=== PATIENT | male | born 1955 | race Caucasian/White ===

== ENCOUNTER 2017-01-23 06:50 | Inpatient (IN) | payer MEDICARE ==
[~2017-01-23 06:50] MED LIST: ACETAMINOPHEN500 M1 PO; ALBUTEROL2.5 MG/3 M INH; ATIVAN0.5 MG PO; ATROVENT 0.02%2.5 ML UPD; BAYER CHEWABLE81 MG PO; BUMEX 1 MG TAB1 MG PO; CALCIUM 600 +1 EAC3 PO; CARDIZEM CD240 MG PO; CARDIZEM LA300 MG PO; CARDURA8 MG PO; CATAPRES0.1 MG PO; COREG12.5 MG PO; COREG25 MG PO; COZAAR100 MG PO; DEPAKOTE SPRIN125 MG PO; FOLBEE PLUS TAB1 TAB PO; HUMALOG 30100 UNITS/; HUMULIN R100 U/ML SC; HYDRALAZINE HCL50 MG PO; HYDROCHLOROTHIA25 MG PO; HYDROCODON-ACE1 EAC7 PO; HYDROCODONE-APA1 TAB PO; IBUPROFEN400 MG PO; ISOSORBIDE MONO60 M1 PO; LANTUS INSULIN10 ML SC; LANTUS SOL100 UNIT/1 SC; LIPITOR10 MG PO; LIPITOR20 MG PO; MAG-OX 400 MG400 MG PO; NEURONTIN 400400 MG PO; NEURONTIN600 MG PO; NORVASC10 MG PO; PEPCID20 MG PO; PRINIVIL20 MG PO; PROTONIX20 MG PO; SEROQUEL25 MG PO; VENTOLIN HFA18 GM INH; VITAMIN B-1100 M1 PO; XOPENEX 0.0.63 MG/3 UPD; ZESTORETIC 20/21 TAB PO; ZOLOFT50 MG PO
[2017-01-23 07:31] LABS: BASOPHILS 0.4 % (0-2); EOSINOPHILS 1.3 % (0-7); HEMOGLOBIN 10.6 g/dL (13.5-17.5); IMMATURE GRANULOCYTES 0.7 % (0-5); LYMPHOCYTES 17.2 % (15-50); MCH 29.9 pg (26.0-34.0); MCHC 32.1 g/dL (31.0-37.0); MCV 93.2 fL (80.0-100.0); MEAN PLATELET VOLUME 9.8 fL (7.4-10.4); MONOCYTES 8.7 % (2-11); NEUTROPHILS 71.7 % (40-80); PLATELET COUNT 308 10x3/uL (130-400); RBC 3.54 10x6/uL (4.20-6.10); RDW 15.6 % (11.5-14.5); WBC 13.6 10x3/uL (4.8-10.8)
[2017-01-23 07:58] LABS: ALBUMIN 2.8 g/dL (3.4-5.0); ANION GAP 16.8 mmol/L (8-16); BILIRUBIN - TOTAL 0.2 mg/dL (0.2-1.3); CALCIUM 8.8 mg/dL (8.5-10.1); CARBON DIOXIDE 21.5 mmol/L (21.0-32.0); CREATININE - SERUM 3.6 mg/dL (0.6-1.3); POTASSIUM - SERUM 5.3 mmol/L (3.5-5.1); PROTEIN - SERUM 7.3 g/dL (6.4-8.2)
[2017-01-23 08:00] LABS: APPEARANCE CLEAR (CLEAR); BILIRUBIN NEGATIVE (NEGATIVE); COLOR YELLOW (YELLOW); GLUCOSE 100 mg/dL (NEGATIVE); KETONE NEGATIVE (NEGATIVE); NITRITE NEGATIVE (NEGATIVE); PROTEIN 3+ mg/dL (NEGATIVE); RED CELLS - URINE OCC /hpf (0-5); SPECIFIC GRAVITY 1.015 (1.005-1.020); UROBILINOGEN NORMAL (NORMAL); WHITE CELLS - URINE OCC /hpf (0-5)
[2017-01-23 08:01] LABS: BACTERIA FEW /hpf (NONE SEEN); EPITHELIAL CELLS 0-5 /hpf (0-5); MUCUS <1+ /lpf (NONE SEEN)
[2017-01-23 08:22] LABS: CREATINE KINASE 106 UL (21-232); PRO BNP 1394 pg/mL (0-125); TROPONIN-I < 0.017 ng/mL (0.000-0.060)
--- NOTE | 2017-01-23 13:10 | NUR ---
ARRIVE TO ROOM VIA STRETCHER FROM ER. CONFUSED. CRYING OUT. ORIENTED TO PERSON. THREE SIDERAILS UP. TRYING TO CRAWL OUT OF BED. ANITRA ALARM AND BED ALARM ON. STOOL VISIBLE AT ANUS. ATTEMPT TO MANUALLY PULL STOOL OUT. STOOL HARD AND PATIENT YELLS OUT WHEN TOUCHING ANUS. TALK WITH SUMMER LOOMIS TO OBTAIN ANITRA BED IF NEEDED. CONTINUE ADMISSION PROCESS AND SAFETY PRECAUTIONS.
[2017-01-23 13:50] LABS: COMPLEMENT C4 29.9 mg/dL (17.4-52.2)
[2017-01-23 13:51] LABS: CHOL - HDL RATIO 3.9 ratio (2.3-4.9); LDL-HDL RATIO 2.1 ratio (1.5-3.5); MAGNESIUM - SERUM 1.9 mg/dL (1.8-2.4)
[2017-01-23 15:39] LABS: HEMOGLOBIN A1C 6.3 % (4.8-6.0)
[2017-01-23 16:17] VITALS: BP 144/94
--- NOTE | 2017-01-23 17:40 | NUR ---
NOTIFY BARRY IN IMAGING TO HAVE RESULTS OF MRI CALLED TO PER 'S REQUEST.
[2017-01-23 17:44] VITALS: BP 144/94; BMI 22.0
--- NOTE | 2017-01-23 19:30 | NUR ---
PT IN BED MAKING A LOUD MOANING NOISE. PT DOES NOT ANSWER ANY OF MY QUESTIONS. UNABLE TO ASSESS ANY ORIENTATION STATUS ALSO UNABLE TO DETERMINE IF PT HAS ANY NEEDS AT THIS TIME. WILL CONTINUE TO MONITOR
[2017-01-23 21:18] VITALS: BP 147/93
--- NOTE | 2017-01-24 02:18 | NUR ---
PT RESTING COMFORTABLY, OCCASIONALL YELLS OUT, CONFUSED. NO NEEDS AT THIS TIME. CONTINUE TO MONITOR CLOSELY. BED LOW, CALL LIGHT IN REACH, SIDE RAILS X 2, HOB 30 DEGREES. ANITRA MAT ON AND UNDER PATIENT.
[2017-01-24 06:51] LABS: BASOPHILS 0.4 % (0-2); EOSINOPHILS 0.7 % (0-7); HEMATOCRIT 32.7 % (42.0-54.0); HEMOGLOBIN 10.3 g/dL (13.5-17.5); IMMATURE GRANULOCYTES 0.8 % (0-5); LYMPHOCYTES 22.1 % (15-50); MCH 29.7 pg (26.0-34.0); MCHC 31.5 g/dL (31.0-37.0); MCV 94.2 fL (80.0-100.0); MEAN PLATELET VOLUME 9.9 fL (7.4-10.4); MONOCYTES 11.1 % (2-11); NEUTROPHILS 64.9 % (40-80); PLATELET COUNT 286 10x3/uL (130-400); RBC 3.47 10x6/uL (4.20-6.10)
[2017-01-24 06:55] LABS: WBC 10.1 10x3/uL (4.8-10.8)
[2017-01-24 07:28] LABS: ANION GAP 15.6 mmol/L (8-16); CALCIUM 8.6 mg/dL (8.5-10.1); CARBON DIOXIDE 22.4 mmol/L (21.0-32.0); CREATININE - SERUM 3.3 mg/dL (0.6-1.3)
--- NOTE | 2017-01-24 07:35 | NUR ---
AM ROUNDS - PT ID IN BED AND ASLEEP AT THIS TIME. GARNER DRAINING. PT HAS A YELLOW BAND ON. IV TO LEFT HAND, D5@100CC/HR. BED AT LOWEST POSITION. CALL EAGLE IN USE/REACH. SIDE RAILS UP X2. PHU CONTINUE TO MONITOR
--- NOTE | 2017-01-24 07:43 | NUR ---
PT HAS NO DIET ORDER. FAMILY STATES PT IS USUALLY ON A [facility] SOFT DIET. PAGED DR. SAVAGE. WAITING WIRE INSERTER BACK.
[2017-01-24 08:15] VITALS: BP 140/105
[2017-01-24 12:04] VITALS: BP 170/90
[2017-01-24 13:56] VITALS: BMI 22.0
[2017-01-24 16:54] VITALS: BP 181/94
[2017-01-24 17:16] LABS: INR 1.08 (0.85-1.17); PROTIME 13.9 SECONDS (11.6-15.0)
[2017-01-24 19:00] VITALS: BP 162/96
--- NOTE | 2017-01-24 19:14 | NUR ---
U.S. TECH AT BED SIDE, PT IN BED, AWAKE AND ALERT. LEFT WRIST IV WITH D5W 1/2 NS INFUSING AT 50 CC/HR. GARNER DRAINING TO GRAVITY.
[2017-01-25] VITALS: BP 187/104
--- NOTE | 2017-01-25 00:55 | NUR ---
PACKING MACHINE FEEDER AT BEDSIDE TO OBTAIN VITALS, CALL LIGHT IN REACH. WILL CONTINUE WITH PLAN OF CARE.
[2017-01-25 04:00] VITALS: BP 181/101
[2017-01-25 05:05] LABS: BASOPHILS 0.2 % (0-2); EOSINOPHILS 0.1 % (0-7); HEMATOCRIT 26.4 % (42.0-54.0); HEMOGLOBIN 8.5 g/dL (13.5-17.5); IMMATURE GRANULOCYTES 0.4 % (0-5); LYMPHOCYTES 12.9 % (15-50); MCH 29.9 pg (26.0-34.0); MCHC 32.2 g/dL (31.0-37.0); MEAN PLATELET VOLUME 9.6 fL (7.4-10.4); MONOCYTES 11.3 % (2-11); NEUTROPHILS 75.1 % (40-80); PLATELET COUNT 252 10x3/uL (130-400); RBC 2.84 10x6/uL (4.20-6.10); RDW 15.7 % (11.5-14.5)
--- NOTE | 2017-01-25 05:08 | NUR ---
RESTING WITH EYES CLOSED, RESPERATIONS EVEN, NO S/S DISTRESS NOTED.
[2017-01-25 05:32] LABS: ANION GAP 12.4 mmol/L (8-16); CALCIUM 8.3 mg/dL (8.5-10.1); CREATININE - SERUM 3.3 mg/dL (0.6-1.3); POTASSIUM - SERUM 3.4 mmol/L (3.5-5.1)
[2017-01-25 05:37] LABS: WBC 18.4 10x3/uL (4.8-10.8)
--- NOTE | 2017-01-25 07:42 | NUR ---
AM ROUNDING- RECIEVED REPORT FROM SUPPLY CHAIN SPECIALIST NURSE CHRISTINE. PT IS CURRENTLY LAYING IN BED ON BACK WITH EYES CLOSED RESTING. ON ROOM AIR. ON MONITOR SHOWING SR, HR 95. IV SEEN TO LEFT HAND WITH D5W WITH 1/2 NS RUNNING AT 50CC. GARNER CATHETER SEEN WITH YELLOW URINE. SCDS ARE ON. NO NEED AT THIS CURRENT TIME. BED IS IN LOW POSIITON AND SIDE RAILS ARE UP X2. WILL CONTINUE TO MONITOR AND CONTINUE WITH PLAN OF CARE.
[2017-01-25 08:00] VITALS: BP 173/90
[2017-01-25 09:34] LABS: AMYLASE - SERUM 24 U/L (25-115); LIPASE 137 U/L (73-393)
--- NOTE | 2017-01-25 11:00 | NUR ---
UPON DOING AM MEDICATIONS AND DAILY SHIFT ASSESSMENT, PT WAS ABLE TO TELL ME HIS NAME, , WHAT YEAR IT IS, AND THAT HE IS IN HOSPITAL. PT ABLE TO TAKE PO MEDICATIONS ORDERED. WILL CONTINUE TO MONITOR.
[2017-01-25 12:00] VITALS: BP 105/58
[2017-01-25 14:24] LABS: ANA REFLEX - DBL STRANDED DNA 6 IU/mL (0-9)
[2017-01-25 14:50] LABS: APPEARANCE SLT CLOUDY (CLEAR); BILIRUBIN NEGATIVE (NEGATIVE); COLOR YELLOW (YELLOW); GLUCOSE 250 mg/dL (NEGATIVE); KETONE NEGATIVE (NEGATIVE); NITRITE NEGATIVE (NEGATIVE); PROTEIN 3+ mg/dL (NEGATIVE); SPECIFIC GRAVITY 1.015 (1.005-1.020); UROBILINOGEN NORMAL (NORMAL)
[2017-01-25 14:52] LABS: BACTERIA MODERATE /hpf (NONE SEEN); EPITHELIAL CELLS 0-5 /hpf (0-5); GRANULAR CAST 0-5 /lpf (NONE SEEN); MUCUS <1+ /lpf (NONE SEEN)
[2017-01-25 16:00] VITALS: BP 143/63
--- NOTE | 2017-01-25 18:31 | NUR ---
PT IS CURRENTLY SITTING UP IN BED SLOUCHED TO RIGHT SIDE WITH EYES CLOSED RESTING. WOKE PT UP SO PT COULD GET MORE COMFORTABLE. PT IS VERY LETHARGIC. NO NEED AT THIS CURRENT TIME. BED IS IN LOW POSITION, SIDE RAILS ARE UP X2, AND CALL LIGHT IS IN REACH.
--- NOTE | 2017-01-25 19:38 | NUR ---
PT RESTING IN BED. WATCHING TV. MAURA HAS YELLOW URINE IN BAG. PT LEANING TO LEFT. STATES HE IS COMFORTABLE IN THAT POSITION. PT HAS PRN STOOL SOFTNERS. ASKED PT WHEN THE LAST TIME HE HAD A BM. HE STATES IT HAS BEEN A WHILE. WILL GIVE PT PRN COLACE AND MIRALAX. PT ALSO STATES HE WANTS HIS ATIVAN. PT DENIES ANY OTHER NEEDS. NO S/S OF DISTRESS. WILL CPOC
[2017-01-25 20:00] VITALS: BP 160/85
--- NOTE | 2017-01-25 22:36 | NUR ---
REPOSITIONED PT. PT WATCHING TV. DENIES ANY NEEDS. NO S/S OF DISTRESS. WILL CPOC
[2017-01-26] VITALS (7 sets, daily range): BP systolic 119–182; BP diastolic 74–94
[2017-01-26 05:19] LABS: BASOPHILS 0.3 % (0-2); HEMATOCRIT 27.1 % (42.0-54.0); IMMATURE GRANULOCYTES 0.6 % (0-5); LYMPHOCYTES 21.3 % (15-50); MCH 30.4 pg (26.0-34.0); MCHC 33.2 g/dL (31.0-37.0); MCV 91.6 fL (80.0-100.0); MEAN PLATELET VOLUME 9.5 fL (7.4-10.4); MONOCYTES 10.2 % (2-11); NEUTROPHILS 66.6 % (40-80); PLATELET COUNT 224 10x3/uL (130-400); RBC 2.96 10x6/uL (4.20-6.10); RDW 15.9 % (11.5-14.5); WBC 15.7 10x3/uL (4.8-10.8)
[2017-01-26 05:30] LABS: ANION GAP 11.6 mmol/L (8-16); CALCIUM 8.4 mg/dL (8.5-10.1); CARBON DIOXIDE 23.4 mmol/L (21.0-32.0); CREATININE - SERUM 3.3 mg/dL (0.6-1.3); MAGNESIUM - SERUM 1.8 mg/dL (1.8-2.4); PHOSPHOROUS 3.1 mg/dL (2.5-4.9)
[2017-01-26 05:31] LABS: INR 1.26 (0.85-1.17); PROTIME 15.7 SECONDS (11.6-15.0)
--- NOTE | 2017-01-26 07:56 | NUR ---
AM ROUNDING- RECIEVED REPORT FROM DIRECTOR OF CONSUMER AFFAIRS NURSE MYNOR. PT IS CURRENTLY SITTING UP IN BED WITH EYES OPEN RESTING. PT IS ALERT TO PERSON, TIME, AND PLACE. ON 02 AT 2L VIA NC (RESP CAME TO ME DURING REPORT AND STATES THAT PTS 02 SAT IS IN 80'S AND AFTER PLACING 02 AT 2L VIA NC ON PTS O2 SAT IS NOW 94%). ON MONITOR SHOWING SR, HR 78. IV SEEN TO LEFT HAND WITH D5W 1/2 NS WITH 30KCL+ RUNNING AT 50CC. GARNER CATHETER SEEN WITH YELLOW URINE. NO NEED AT THIS CURRENT TIME. BED ALARM IS ON. BED IS IN LOW POSITION, SIDE RAILS ARE UP X2, CALL LIGHT IS IN REACH, AND NON-SKID SOCKS ARE ON. WILL CONTINUE TO MONITOR AND CONTINUE WITH PLAN OF CARE.
[2017-01-26 09:18] LABS: SPE - A/G RATIO 0.7 (0.7-1.7); SPE - ALBUMIN 2.9 g/dL (2.9-4.4); SPE - ALPHA-1 GLOBULIN 0.2 g/dL (0.0-0.4); SPE - ALPHA-2 GLOBULIN 1.1 g/dL (0.4-1.0); SPE - GAMMA GLOBULIN 1.6 g/dL (0.4-1.8); SPE - M-SPIKE Not Observed g/dL (Not Observed); SPE - TOTAL PROTEIN 6.8 g/dL (6.0-8.5)
[2017-01-26 09:58] LABS: AMYLASE - SERUM 29 U/L (25-115); LIPASE 164 U/L (73-393)
--- NOTE | 2017-01-26 10:42 | NUR ---
0930- UPON DOING AM MEDICATIONS NOTICED FROM HALLWAY THAT PT HAD BLOOD ON PILLOW CASE. CAME TO CHECK ON PT AND IV CATHETER TO LEFT HAND WAS HANGING OUT. 1040- THIS NURSE ATTEMPTED TO SITE PT X2 STICK WITH IV CATHETER THAT WAS NOT SUCCESSFUL. MALLORY BIGGS, VASCULAR ACCESS NURSE IN ROOM NOW TRYING TO SITE PT WITH IV CATHETER. WILL RESTART IV MEDICATIONS AND GIVE IV ANTIBIOTICS ONCE PT HAS IV.
--- NOTE | 2017-01-26 11:45 | NUR ---
MALLORY BIGGS, VASCULAR ACCESS NURSE SITED PT WITH 22G IV CATHETER TO LEFT HAND. IV FLUIDS RESTARTED ORDERED.
--- NOTE | 2017-01-26 12:28 | NUR ---
DR. WORTHINGTON ON UNIT. DR. WORTHINGTON STATES TO DO BLADDER TRAINING WITH PT AND D/C FOELY WHEN APPROPIATE FOR PT.
--- NOTE | 2017-01-26 13:21 | NUR ---
Nutrition Follow Up: Pt was asleep at the time of RD visit. No family present. Interview deferred. Pt is eating 50% meal avg on a renal ADA mech soft diet. Wt gain noted. No BM since admit. Labs reviewed. Meds noted including Megace. Rec continue current diet. Rec continue appetite stimulant. RD following.
[2017-01-26 14:24] LABS: ANA REFLEX - ANTICHROMATIN ABS <0.2 AI (0.0-0.9); ANA REFLEX - CENTROMERE B ABS <0.2 AI (0.0-0.9); ANA REFLEX - DIRECT Positive (Negative); ANA REFLEX - JO-1 AB <0.2 AI (0.0-0.9); ANA REFLEX - RNP ANTIBODIES 1.2 AI (0.0-0.9); ANA REFLEX - SCL-70 1.1 AI (0.0-0.9); ANA REFLEX - SJOGRENS AB SSA 0.2 AI (0.0-0.9); ANA REFLEX - SJOGRENS AB SSB <0.2 AI (0.0-0.9); ANA REFLEX - SMITH AB <0.2 AI (0.0-0.9)
[2017-01-26 15:34] LABS: PRO/CRE RATIO URINE 15.8 mg/g; PROTEIN - URINE 614.4 mg/dL (0.0-11.9)
--- NOTE | 2017-01-26 15:55 | NUR ---
STARTED PTS BLADDER TRAINING STATED BY DR. WORTHINGTON. CLAMED PTS GARNER CATHETER TUBING. INSTRUCTED PT TO LET ME KNOW WHEN HAVING URGE TO URINATE SO I CAN UNCLAMP GARNER. PT AGREES.
--- NOTE | 2017-01-26 16:20 | NUR ---
PT STILL HAS NOT HAD BM. PT GIVEN COLACE PRN ORDERED AND MIRLAX PRN ORDERED.
[2017-01-26 17:12] LABS: SPE - A/G RATIO 0.8 (0.7-1.7); SPE - ALBUMIN 2.3 g/dL (2.9-4.4); SPE - ALPHA-1 GLOBULIN 0.2 g/dL (0.0-0.4); SPE - ALPHA-2 GLOBULIN 0.8 g/dL (0.4-1.0); SPE - BETA GLOBULIN 0.8 g/dL (0.7-1.3); SPE - GAMMA GLOBULIN 1.1 g/dL (0.4-1.8); SPE - M-SPIKE Not Observed g/dL (Not Observed); SPE - TOTAL PROTEIN 5.2 g/dL (6.0-8.5)
--- NOTE | 2017-01-26 18:27 | NUR ---
PT IS LAYING IN BED ON BACK WITH EYES OPEN RESTING. GARNER CATHETER HAS BEEN CLAMPED FOR BLADDER TRAINING. GARNER TUBING UNCLAMPED. WILL PASS THIS ALONG IN REPORT. WILL CONTINUE TO MONITOR.
--- NOTE | 2017-01-26 21:53 | NUR ---
HS MEDS GIVEN WITH FRESH ICE WATER. BS 249. COVERED PER S/S. PT INCONTINENT OF BOWEL, DYNO TECHNICIAN AT BED SIDE. BATH AND LINEN CHANGE COMPLETE. BED LOW, CL IN REACH, WILL CONT TO MONITOR.
[2017-01-27] VITALS: BP 160/70
[2017-01-27 04:00] VITALS: BP 106/55
[2017-01-27 05:21] LABS: BASOPHILS 0.2 % (0-2); EOSINOPHILS 1.1 % (0-7); HEMATOCRIT 27.7 % (42.0-54.0); IMMATURE GRANULOCYTES 1.3 % (0-5); LYMPHOCYTES 14.9 % (15-50); MCH 29.8 pg (26.0-34.0); MCHC 32.5 g/dL (31.0-37.0); MCV 91.7 fL (80.0-100.0); MONOCYTES 10.2 % (2-11); NEUTROPHILS 72.3 % (40-80); PLATELET COUNT 250 10x3/uL (130-400); RBC 3.02 10x6/uL (4.20-6.10); RDW 15.9 % (11.5-14.5); WBC 16.2 10x3/uL (4.8-10.8)
[2017-01-27 05:36] LABS: INR 1.92 (0.85-1.17)
[2017-01-27 05:40] LABS: ANION GAP 13.7 mmol/L (8-16); CALCIUM 8.7 mg/dL (8.5-10.1); CARBON DIOXIDE 22.7 mmol/L (21.0-32.0); CREATININE - SERUM 3.5 mg/dL (0.6-1.3); PHOSPHOROUS 2.9 mg/dL (2.5-4.9); POTASSIUM - SERUM 4.4 mmol/L (3.5-5.1)
[2017-01-27 05:43] LABS: ERYTHROCYTE SEDIMENTATION RATE 42 mm/hr (0-20)
[2017-01-27 08:45] VITALS: BP 161/79
--- NOTE | 2017-01-27 09:24 | NUR ---
AM MEDS GIVEN AT THIS TIME. LT WRIST IV, INFILTRATED, SO WILL START NEW IV. PT DENIES ANY NEEDS AT THIS TIME. CALL LIGHT IN REACH, ANITRA JOHNSON IN PLACE, NAD NOTED, WILL CONTINUE TO MONITOR.
--- NOTE | 2017-01-27 11:39 | NUR ---
BLOOD SUGAR OF 185, 2 UNITS GIVEN PER S/S. PT IN BED, DENIES ANY NEEDS AT THIS TIME. CALL LIGHT IN REACH, NAD NOTED, WILL CONTINUE TO MONITOR.
--- NOTE | 2017-01-27 11:57 | NUR ---
D/C LT HAND IV, TIP INTACT, DUE TO INFILTRATION. NEW 22G IV STARTED TO RT FA X2 STICKS. PT TOLERATED PROCEDURE WELL. PT DENIES ANY NEEDS AT THIS TIME. CALL LIGHT IN REACH, NAD NOTED, WILL CONTINUE TO MONTIOR.
[2017-01-27 12:40] VITALS: BP 163/85
[2017-01-27 16:24] VITALS: BP 113/74
--- NOTE | 2017-01-27 17:01 | NUR ---
BLOOD SUGAR OF 146, NO COVERAGE NEEDED PER S/S. PT IN BED, WITH EYES CLOSED, BUT EASILY AROUSABLE, PT DENIES ANY NEEDS AT THIS TIME. CALL LIGHT IN REACH, NAD NOTED, WILL CONTINUE TO MONITOR.
[2017-01-27 20:00] VITALS: BP 141/60
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
[2017-01-28] VITALS: BP 154/81
--- NOTE | 2017-01-28 01:00 | NUR ---
PT RESTING WITH EYES CLOSED. RESP EVEN AND REGULAR. GARNER CLAMPED AT THIS TIME. SR UP X2, CALL LIGHT WITHIN REACH AND BED ALARM ON.
--- NOTE | 2017-01-28 02:01 | NUR ---
PT RESTING WITH EYES CLOSED. RESP EVEN AND REGULAR. SR UP X2, CALL LIGHT WITHIN REACH AND BED ALARM ON.
[2017-01-28 02:08] VITALS: BP 178/132
[2017-01-28 04:00] VITALS: BP 157/75
--- NOTE | 2017-01-28 05:04 | NUR ---
PT RESTING WITH EYES CLOSED. RESP EVEN AND REGULAR. SR UP X2, CALL LIGHT WITHIN REACH AND BED ALARM ON. BLADDER TRAINING IN PROGRESS.
--- NOTE | 2017-01-28 05:58 | NUR ---
VSS THROUGHOUT NGIHT. SR PER CM. PT DENIED AN DISCOMFORT. CONTINUES TO BE CONFUSED TO PLACE, TIME AND SITUATION. AM FSBS 140. NO COVERAGE NEEDED. NEEDS MET; WILL CONTINUE TO MONITOR.
[2017-01-28 06:44] LABS: BASOPHILS 0.3 % (0-2); EOSINOPHILS 2.6 % (0-7); HEMATOCRIT 28.8 % (42.0-54.0); HEMOGLOBIN 9.3 g/dL (13.5-17.5); IMMATURE GRANULOCYTES 1.2 % (0-5); LYMPHOCYTES 23.1 % (15-50); MCH 29.7 pg (26.0-34.0); MCHC 32.3 g/dL (31.0-37.0); MEAN PLATELET VOLUME 10.8 fL (7.4-10.4); MONOCYTES 9.5 % (2-11); NEUTROPHILS 63.3 % (40-80); PLATELET COUNT 258 10x3/uL (130-400); RBC 3.13 10x6/uL (4.20-6.10); RDW 15.8 % (11.5-14.5); WBC 13.5 10x3/uL (4.8-10.8)
[2017-01-28 06:55] LABS: ANION GAP 17.6 mmol/L (8-16); CALCIUM 8.9 mg/dL (8.5-10.1); CARBON DIOXIDE 19.8 mmol/L (21.0-32.0); CREATININE - SERUM 3.4 mg/dL (0.6-1.3); POTASSIUM - SERUM 4.4 mmol/L (3.5-5.1)
[2017-01-28 06:57] LABS: INR 2.94 (0.85-1.17); PROTIME 30.9 SECONDS (11.6-15.0)
[2017-01-28 06:58] LABS: PHOSPHOROUS 3.8 mg/dL (2.5-4.9)
--- NOTE | 2017-01-28 07:42 | NUR ---
RECIEVED REPORT ON PATIENT, PATIENT IS RESTING AT THIS TIME, NAD NOTED. AROUSES TO VOICE. PATIENT BED IS LOW AND LOCKED CALL LIGHT IN REACH. PATIENT DENIES ANY NEEDS AT THIS TIME. SR ON MONITOR WITH A RATE OF 80. PATIENT HAS A R FA IV THAT IS SL. WILL CONT TO MONITOR PATIENT. CPOC
[2017-01-28 08:00] VITALS: BP 147/73
--- NOTE | 2017-01-28 10:00 | NUR ---
PATIENT HAS GARNER CATHETER, WILL PREFORM BLADDER TRAINING TODAY AND PULL WHEN PATIENT GETS URGE. CPOC
[2017-01-28 11:00] VITALS: BP 140/69
--- NOTE | 2017-01-28 11:53 | NUR ---
PATIENT SITTING UP IN BED EATING LUNCH, DENIES ANY NEEDS. CPOC
--- NOTE | 2017-01-28 14:00 | NUR ---
BLADDER TRAINING CONTINUING, PATIENT HAS NOT HAD URGE TO URINATE. CPOC
[2017-01-28 15:04] VITALS: BP 139/63
--- NOTE | 2017-01-28 16:00 | NUR ---
PATIENT GARNER CATHETER WAS REMOVED ORDERED. ORDER WAS PLACED 2 DAYS AGO, WAS PERFORMING BLADDER TRAINING TODAY, PATIENT STATED URGE TO URINATE. CPOC
--- NOTE | 2017-01-28 18:43 | NUR ---
PATIENT SLEEPING, NAD NOTED. SR ON MONITOR WITH A RATE OF 77. CPOC
--- NOTE | 2017-01-28 23:40 | NUR ---
INIIAL ROUNDS COMPLETED AT 1914 HRS. PT DENIED ANY DISCOMFORT. ASSESMENT COMPLETED AT 2004 HRS. A-FLUTTER PER CM HR 89. BP ELEVATED. IV TO RFA SL. LUNGS DIMINISHED IN BASES BILAT. PT ALERT, ORIENTED TO PERSON. REORIENTED TO PLACE, TIME AND SITUATION. PT BECAME VERY BELLIGERENT AROUND 2024 HRS. PT STATING HE WAS GOING HOME AND CURSING AT STAFF. INFORMED PT THAT HE WAS HERE FOR THE NIGHT AND TO SPEAK TO MDIN AM ABOUT GOING BACK TO [facility]. EMOTIONAL SUPPORT GIVEN. FSBS 22 AND PUDDING GIVEN PER REQUEST. 200CC OF YELLOW URINE NOTED IN URINAL AT THAT TIME. PM MEDS GIVNE WELL 4 UNITS HUMALOG SUB-Q TO UPPER R ARM PER S/S/. PT CURRENTLY RESTING WITH EYES CLOSED. RESP EVEN AND REGULAR. SR UP X2, CALL LIGHT WITHIN REACH AND BED ALARM ON.
[2017-01-29] VITALS: BP 144/67
--- NOTE | 2017-01-29 00:51 | NUR ---
PT RESTING WITH EYES CLOSED. RESP EVEN AND REGULAR. SR UP X2, CALL LIGHT WITHIN REACH AND BED ALARM ON.
--- NOTE | 2017-01-29 02:47 | NUR ---
BEDBATH DONW, BED LINENS CHANGED. PT TOLERATED ACTIVITY WELL. WILL CONTINUE TP MONITOR. SR PER CM HR 77. CALL LIGHT WITHIN REACH AND BED ALARM ON.
--- NOTE | 2017-01-29 04:52 | NUR ---
PT RESTING WITH EYES CLOSED. RESP EVEN AND REGULAR. SR UP X2, CALL LIGHT WITHIN REACH AND BED ALARM ON.
[2017-01-29 05:40] LABS: BASOPHILS 0.4 % (0-2); EOSINOPHILS 2.8 % (0-7); HEMATOCRIT 26.9 % (42.0-54.0); HEMOGLOBIN 8.8 g/dL (13.5-17.5); IMMATURE GRANULOCYTES 1.6 % (0-5); LYMPHOCYTES 22.1 % (15-50); MCH 29.6 pg (26.0-34.0); MCHC 32.7 g/dL (31.0-37.0); MCV 90.6 fL (80.0-100.0); MEAN PLATELET VOLUME 10.1 fL (7.4-10.4); MONOCYTES 9.3 % (2-11); NEUTROPHILS 63.8 % (40-80); PLATELET COUNT 296 10x3/uL (130-400); RBC 2.97 10x6/uL (4.20-6.10); RDW 15.8 % (11.5-14.5)
[2017-01-29 06:01] LABS: ANION GAP 13.5 mmol/L (8-16); CALCIUM 8.8 mg/dL (8.5-10.1); CARBON DIOXIDE 21.3 mmol/L (21.0-32.0); CREATININE - SERUM 3.7 mg/dL (0.6-1.3); POTASSIUM - SERUM 3.8 mmol/L (3.5-5.1)
[2017-01-29 06:02] LABS: INR 4.01 (0.85-1.17); PROTIME 39.6 SECONDS (11.6-15.0)
[2017-01-29 08:00] VITALS: BP 164/82
--- NOTE | 2017-01-29 08:46 | NUR ---
AM ROUNDS COMPLETED. SHIFT ASSESSMENT DONE. PT A&O BUT NEEDS FREQUENT RECUING ON SITUATION. HE REMEMBERED HE WAS IN HOSPITAL BUT COULDNT STATE THE NAME OR REASON. PT NEEDS URINE AND STOOL SPECIMEN, CLEANSING TECHNIQUE DEMONSTRATED AND COLLECTION CUPS GIVEN. PT VERBALIZED UNDERSTANDING AND STATES HE WILL TRY TO GET THEM. PT IS A FALL RISK AND CALLS FOR ASSISTANCE OOB AND WILL CALL WHEN NEEDING A BOWEL MOVEMENT. INTITIATED IVPB ROCEPHIN INFUSING VIA R.FA PIV ACCESS, DRSG CDI AND SWAB CAPS IN USE WITH ALL TUBING REPLACE AND DATED PER POLICY. PT HAS TELEMETRY RUNNING SR PER [employer]. S1S2 HEART SOUNDS NOTED RRR, BREATH SOUNDS CTA THROUGHOUT ALL LOBES. SCDS IN PLACE BILAT. PT DENIES ANY CURRENT PAIN OR NEEDS AT THIS TIME. 100% OF BREAKFAST FINISHED AND PT READY TO REST, WATCHING TV. CL IN REACH, BED IN LOWEST, SIDE RAILS X2. WILL CPOC.
[2017-01-29 12:00] VITALS: BP 148/78
--- NOTE | 2017-01-29 12:09 | NUR ---
FSBS 269 PT REC'D 6 UNITS PER SS INSULIN. PT VOIDED IN URINAL AND I COLLECTED AND SENT IT TO LAB ORDERED. DISCONNECTED PT FROM IV FLUIDS ANBX WAS COMPLETED. PT RESTING QUIETLY IN BED WAITING ON LUNCH DENIES ANY FURTHER NEEDS AT THIS TIME. WILL CPOC.
[2017-01-29 12:46] LABS: APPEARANCE CLEAR (CLEAR); BACTERIA FEW /hpf (NONE SEEN); BILIRUBIN NEGATIVE (NEGATIVE); COLOR YELLOW (YELLOW); EPITHELIAL CELLS RARE /hpf (0-5); GLUCOSE 1000 mg/dL (NEGATIVE); KETONE NEGATIVE (NEGATIVE); NITRITE NEGATIVE (NEGATIVE); PROTEIN 2+ mg/dL (NEGATIVE); RED CELLS - URINE 0-5 /hpf (0-5); UROBILINOGEN NORMAL (NORMAL); WHITE CELLS - URINE RARE /hpf (0-5)
--- NOTE | 2017-01-29 15:27 | NUR ---
PT WANTING TO BE DISCHARGED BUT STATES HE DOESNT WANT TO GO BACK TO [place]. WILL DISCUSS WITH PRIMARY DOCTOR AND PTS FAMILY ABOUT LIVING SITUATIONS.
[2017-01-29 16:02] VITALS: BP 153/81
--- NOTE | 2017-01-29 17:05 | NUR ---
FSBS 141 NO COVERAGE REQUIRED PER SS INSULIN. UNABLE TO GET AHOLD OF PTS FAMILY CASE MANAGEMENT AND MYSELF CALLED SEVERAL DIFFERENT TIMES AND NUMBERS. PT CANT REMEMBER ANY NUMBERS EITHER. WILL CONTINUE TO TRY OTHER OPTIONS BUT IF NOT PT WILL HAVE TO BE DC BACK TO [place]. PT STATES HE IS OKAY WITH [facility] AND PREFERS THEM OVER A DIFFERENT FACILITY BUT DEPRESSED ABOUT NOT SEEING HIS FAMILY. ASSISTED PT UP IN BED TO EAT DINNER, NO FURTHER NEEDS AT THIS TIME. WILL CPOC.
--- NOTE | 2017-01-29 17:18 | NUR ---
Patient Name: JEAN ANGELA Encounter No: [id number] : 1955 Primary Insurance: MEDICARE A & B Anticipated DC Date: 01-30-2017 Planned Disposition: Nursing Facility [facility] Cert External Planned Provider: [facility], LONG TERM CARE MEDICAID BED DISCHARGE PLANNING note: * Is the patient Alert and Oriented? Yes 0 * How many steps to enter\exit or inside your home? NONE 0 * PCP DR. VALADEZ 0 * Pharmacy [facility] 0 * Preadmission Environment [facility] 0 * Facility Name [facility] 0 * ADLs Partial Dependent 0 * Partial ADLs (Assistance needed) Ambulation Bathing Medication Management Transfers 0 * Equipment Other 0 * Other Equipment ALL EQUIPMENT PROVIDED BY FACILITY 0 * List name and contact numbers for known caregivers / representatives who currently or will assist patient after discharge: MARIANNANI, * Community resources currently utilized None 0 * Please name any agencies selected above. NONE 0 * Additional services required to return to the preadmission environment? No 0 * Can the patient safely return to the preadmission environment? Yes 0 * Has this patient been hospitalized within the prior 30 days at any hospital? No 0 CM MET WITH PT IN ROOM TO DISCUSS DISCHARGE PLANNING AND NEEDS. PT REPORTS LIVING AT [facility] AND CANNOT REMEMBER HOW LONG HE HAS BEEN THERE. PT USES A WALKER AT THE FACILITY BUT DOES NOT THINK HE CAN GET OUT OF BED NOW. PT REPORTS HE WANTS TO GO HOME WITH FAMILY, HIS BROTHER KISHA OR HIS SISTER ZURI. PT HAS NO PHONE NUMBERS FOR EITHER AND CANNOT REMEMBER THE LAST TIME HE SPOKE WITH EITHER. PT HAS NO NUMBERS FOR FAMILY WITH HIM. CM CALLED PT'S LISTED EMERGENCY NUMBER FOR KISHA ANGELA, , WHICH IS FOR [facility]. 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 PETROS PROVIDED CM WITH PHONE NUMBER OF [facility], ; CM CALLED MULTIPLE TIMES AND RECEIVED MESSAGE THAT THE NUMBER IS NOT REACHABLE. CM SPOKE TO RN BERNARD ELLISON, WHO LOCATED AN OLD NUMBER FOR ZURI ANGELA, SISTER, , WHICH WAS FOUND TO BE DISCONNECTED. CM SPOKE TO PT IN ROOM, NOTIFIED OF ATTEMPTS TO REACH FAMILY. PT REPORTS HE WILL RETURN TO [facility] AND WILL LOOK INTO OTHER NURSING HOMES FOR POSSIBLE FUTURE RELOCATION. PT REPORTS HE IS NOT UNHAPPY WITH [facility] AT THIS TIME. IMPORTANT MESSAGE FROM MEDICARE PROVIDED AND EXPLAINED. CM CALLED AND NOTIFIED PETROS AT [facility]. CM PROVIDED CLINICAL UPDATE FOR [facility] VIA NATHANIEL CONWAY, CLINICAL LIAISON, WHO PICKED UP PERSONALLY. CM SPOKE TO DR. SAVAGE WHO REPORTS PT'S WHITE COUNT IS UP AND SHE PLANS FOR DISCHARGE TOMORROW. FOR DISCHARGE, NURSE REPORT TO BE CALLED TO [facility] AT [phone]. FAX DISCHARGE INFORMATION TO [facility] AT [phone]. [facility] TO ARRANGE VAN TRANSPORT. Luis Briceno, CASE MANAGEMENT
[2017-01-29 19:00] VITALS: BP 159/76
--- NOTE | 2017-01-29 19:57 | NUR ---
RESUMED CARE OF PT, LYING IN BED RESPIRATIONS EVEN AND UNLABORED ON ROOM AIR. SCDS ON, AND BED ALARM ON. [address] ST ON TELEMETRY. NO NEEDS AT THIS TIME, WILL CONTINUE TO MONITOR. SEE NURSE ASSESSMENT. CALL LIGHT IN REACH.
[2017-01-30] VITALS: BP 168/74
[2017-01-30 04:00] VITALS: BP 97/66
--- NOTE | 2017-01-30 04:25 | NUR ---
DIVISION SALES MANAGER AT BEDSIDE TO OBTAIN VITALS, CALL LIGHT IN REACH. WILL CONTINUE WITH PLAN OF CARE.
[2017-01-30 04:32] LABS: BASOPHILS 0.3 % (0-2); EOSINOPHILS 2.5 % (0-7); HEMATOCRIT 29.2 % (42.0-54.0); HEMOGLOBIN 9.5 g/dL (13.5-17.5); IMMATURE GRANULOCYTES 1.6 % (0-5); LYMPHOCYTES 20.8 % (15-50); MCH 29.3 pg (26.0-34.0); MCHC 32.5 g/dL (31.0-37.0); MCV 90.1 fL (80.0-100.0); MEAN PLATELET VOLUME 9.7 fL (7.4-10.4); MONOCYTES 9.3 % (2-11); NEUTROPHILS 65.5 % (40-80); PLATELET COUNT 329 10x3/uL (130-400); RBC 3.24 10x6/uL (4.20-6.10); RDW 15.7 % (11.5-14.5); WBC 13.1 10x3/uL (4.8-10.8)
[2017-01-30 05:19] LABS: INR 2.7 (0.85-1.17); PROTIME 28.9 SECONDS (11.6-15.0)
--- NOTE | 2017-01-30 06:34 | NUR ---
NO CHANGES FROM PREVIOUS ASSESSMENT, CALL LIGHT IN REACH.
--- NOTE | 2017-01-30 07:23 | NUR ---
PT LAYING TO LEFT SIDE SLEEPING ARROUSES EASILY. FSBS DONE RESULT IS 198. PT REFUSES INSULIN BECAUSE "I WILL DROP IF YOU GIVE IT TO ME THAT LOW". WILL CONT TO MONITOR
[2017-01-30 08:00] VITALS: BP 212/68
[2017-01-30 10:17] LABS: HEPATITIS C ANTIBODY >11.0 (0.0-0.9)
--- NOTE | 2017-01-30 10:30 | NUR ---
PT HAS STOOL SPECIMEN CUP IN ROOM. WHEN PT HAS BM WILL COLLECT.
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
--- NOTE | 2017-01-30 10:58 | NUR ---
Nutrition Follow Up: Per chart pt is very confused this am. Interview deferred at this time. Pt is eating 73% meal avg on a renal ADA mech soft diet. Wt stable. +BM 01/28/17. Labs reviewed. Meds noted including Megace, Thiamine. Rec continue current diet. RD following.
--- NOTE | 2017-01-30 11:13 | NUR ---
PT BS IS 490, PT DID REFUSE AM INSULIN. WILL GIVE [address] JANETTE RODAS
--- NOTE | 2017-01-30 11:40 | NUR ---
DR SAVAGE HAS BEEN PAGED AGAIN ABOUT PT TO BE DC HOME. NEED ORDERS.
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
[2017-01-30 12:03] VITALS: BP 157/76
[2017-01-30 12:17] LABS: CAT - DOPAMINE <30 pg/mL (0-48); CAT - EPINEPHRINE 25 pg/mL (0-62); CAT - NOREPINEPHRINE 125 pg/mL (0-874)
[2017-01-30] MEDS ORDERED: ATIVAN2 MG/ML IV (14:16)
[2017-01-30] MEDS ORDERED: IPRAT-ALBUT 0.5-3 ML INH (14:16)
[2017-01-30] MEDS ORDERED: PROTONIX I40 MG/VIAL PD (14:16)
[2017-01-30] MEDS ORDERED: PROCRIT/EP10000 UNIT SC (14:16)
[2017-01-30] MEDS ORDERED: METOPROLOL TART50 MG PO (14:16)
[2017-01-30] MEDS ORDERED: HUMALOG 30100 UNITS/ SC (14:16)
[2017-01-30] MEDS ORDERED: NYSTATIN ORAL SU5 ML PO (14:16)
[2017-01-30] MEDS ORDERED: CEFTRIAXONE1 G/VIAL IM (14:44)
[2017-01-30] MEDS ORDERED: PROTONIX40 MG PO (14:54)
[2017-01-30] MEDS ORDERED: ATIVAN0.5 MG PO (14:55)
--- NOTE | 2017-01-30 15:27 | NUR ---
Patient Name: JEAN ANGELA Encounter No: [id number] : 1955 Primary Insurance: MEDICARE A & B Anticipated DC Date: 01-30-2017 Planned Disposition: [facility] Facility External Planned Provider: [facility], MEDICARE REHAB BED DCP follow-up note: CM SPOKE TO PT IN ROOM AT APPROXIMATELY NOON TODAY, DISCUSSED DISCHARGE TODAY TO [facility]. PT IN AGREEMENT WITH DISCHARGE TODAY TO [facility]. IMPORTANT MESSAGE FROM MEDICARE PROVIDED AND EXPLAINED. CM RECEIVED DISCHARGE ORDER, NOTIFIED NATHANIEL, , CLINICAL LIAISON FOR [facility] OF DISCHARGE AND REQUESTED VAN MAID SUPERVISOR TIME. CM FAXED DISCHARGE INFORMATION TO [facility] VIA NATHANIEL AT [phone]. NURSE REPORT TO BE CALLED TO JANUSZ CRISTOBAL, . JANUSZ JACKSONJaeln TO ARRANGE VAN MAID SUPERVISOR THIS AFTERNOON. Luis Briceno, CASE MANAGEMENT
--- NOTE | 2017-01-30 15:50 | NUR ---
DC PT PIV WITH CATH TIP INTACT. DC TELE AND RETURNED TO CUSTOMER SERVICE SPECIALIST. WENT OVER DC INSTRUCTIONS WITH PT PT VERBALIZES UNDERSTANDING
[2017-01-30 15:54] VITALS: BP 195/72
--- NOTE | 2017-01-30 15:56 | NUR ---
CALLED REPORT TO MICHAEL AT [facility]. BELLE GOMEZ IS ON THE WAY TO PICK PT UP
--- NOTE | 2017-01-30 17:09 | NUR ---
PT WAS WHEELED OUT BY PATRICIA SAEZ AT [facility].
[2017-01-30 18:10] LABS: ALDOSTERONE <1.0 ng/dL (0.0-30.0)
[2017-01-31 14:23] LABS: ANCA - ANTIMYELOPEROXIDASE <9.0 U/mL (0.0-9.0); ANCA - ANTIPROTEINASE 3 <3.5 U/mL (0.0-3.5); ANCA - ATYPICAL <1:20 titer (Neg:<1:20); ANCA - CYTOPLASMIC <1:20 titer (Neg:<1:20); ANCA - PERINUCLEAR <1:20 titer (Neg:<1:20)
--- NOTE | 2017-01-31 15:32 | CN ---
PATIENT NAME:JEAN ANGELA MEDICAL RECORD: [id number] : 57 LOCATION:[facility] D.2135 ADMIT DATE: 01/23/17 ACCOUNT: [id number] CONSULTING PHYSICIAN: CORONA CLANCY MD REFERRING PHYSICIAN: GUSTAVO SAVAGE MD DATE OF CONSULTATION: 01/30/2017 Psychiatric Consultation IDENTIFYING DATA: The patient is 61 years old and he is admitted to the hospital secondary to mental status changes. CHIEF COMPLAINT: Threats of aggression. HISTORY OF PRESENT ILLNESS: The patient lives in a longterm. He apparently has had a change in mental status. He was referred to the hospital for evaluation. As it turns out, he has renal failure, COPD, congestive heart failure, coronary artery disease, hyperlipidemia, and hypertension. The patient apparently wanted to go outside to smoke even though he does not have any cigarettes and when he was blocked from doing so by the nursing staff, he made an aggressive statement and vulgar statement to her. The patient does not have any recollection of this. He says that he does not want to hurt anyone or himself. He says he wants to go outside and smoke. He thinks he is in the longterm and not the hospital. He does not know anything about any kind of kidney disease or heart disease and seemed genuinely surprised when I mentioned it to him. He then went back to saying that he wants to go outside and smoke. He also indicates that he was quite a heavy drinker, but that it has been a long time since he drank. MENTAL STATUS EXAMINATION: The patient is a 61-year-old man who appears substantially older than that. He is thin, frail, and sickly looking. He is oriented to person only. His mood is flat. His affect is appropriate. His memory, concentration, and abstraction abilities are moderately impaired and he denies that he would seek to harm himself or others as well as overt psychotic symptoms. ASSESSMENT: Dementia, type uncertain. PLAN: The patient clearly is impaired. I accept the reports that this is an acute change; however, it looks rather chronic to me. I would suggest that perhaps the patient had a microvascular infarct and/or a delirium associated with his multiple medical problems. His established and underlying diagnosis would be something between vascular dementia and an alcohol related dementia, although those two are not mutually exclusive and can certainly overlap. Once his underlying metabolic abnormalities are corrected, I would hope that his cognition would improve, but I doubt it. In this current state he should not be living alone and it would seem that living in a longterm would be the least restrictive environment that can meet his needs. I would recommend the use of p.r.n. Haldol or Ativan if he becomes behaviorally out of control. A Habitrol patch may also be effective. With regards to starting him on a cholinesterase inhibitor, I think that would be reasonable, but I would probably wait to see if his cognition improves in the next couple of weeks. I do not view him as acutely dangerous to himself or others. However, given his current situation, he likely has the ability to react impulsively and angrily as he did with the incident referenced above. Follow up should be with his primary care physician, CONSULT REPORT [id number] JEAN ANGELA a neurology followup might also be indicated. Certainly, I would be happy to see him again if these behavior problems continue. TRANSINT:[id number] Voice Confirmation ID: [id number] DOCUMENT ID: [id number] CORONA CLANCY MD at 1532 CC: [id number] DICTATION DATE: 01/30/17 1610 PROGRAM REP: 01/30/17 2100 DIS IN 01/30/17 [id number] [place] [address]
[2017-01-31 17:12] LABS: UPE RAND - ALBUMIN 56.8 % (()); UPE RAND - ALPHA 1 GLOBULIN 8.7 % (()); UPE RAND - ALPHA 2 GLOBULIN 5.9 % (()); UPE RAND - BETA GLOBULIN 13.2 % (()); UPE RAND - GAMMA GLOBULIN 15.3 % (())
[2017-02-01 15:26] LABS: RENIN ACTIVITY - PLASMA 0.501 ng/mL/hr (0.167-5.380)
--- NOTE | 2017-02-08 12:47 | EC ---
PATIENT:JEAN ANGELA DATE OF SERVICE: 01/23/17 SEX: M MEDICAL RECORD: [id number] DATE OF : [birth year] LOCATION:D.M2 D.213 AGE OF PATIENT: 61 ADMISSION DATE: 01/23/17 REFERRING PHYSICIAN: INTERPRETING PHYSICIAN: TERRIE MARCANO MD ECHOCARDIOGRAM REPORT ECHO CHARGES 4 ECHO COMPLETE CLINICAL DIAGNOSIS: A-FLUTTER ECHOCARDIOGRAPHIC MEASUREMENTS (adult normal given) AC root (d.<3.7cm) 1.8 cm LV Septum d (<1.2 cm> 1.1 cm Valve Excursion 0.8 cm LV Septum (systole) 1.5 cm Left Atria (s.<4.0cm> 3.7 cm LVPW d(<1.2cm) 1.1 cm RV (d.<2.3cm) 2.0 cm LVPW (sytole) 1.5 cm LV diastole(<5.6CM) 4.6 cm MV E-F(>70mm/sec) cm LV systole 2.8 cm LVOT Diameter 1.4 cm MV exc.(>10mm) cm Est.ejection fraction (50-75%) % Pericardial Effusion N DOPPLER: LVIT cm/sec A 127 cm/sec E 85.0 cm/sec LA cm/sec RVSP 18.0 mmHg LVOT 105 cm/sec AOP1/2T m/s Asc. Ao 174 cm/sec RVOT 68.0 cm/sec RA cm/sec PA 121 cm/sec AV Gradient Peak 12.1 mmHg AV Mean 6.3 mmHg AV Area 0.9 cm MV Gradient Peak 8.6 mmHg MV Mean 3.6 mmHg MV Area cm COMMENTS: Traffic Signal Repairer: Jessa COHENOE Musical Instrument Mechanic: Viki Marcano TAPE# PACS DATE OF SERVICE: 01/24/2017 Transthoracic Echocardiogram FINDINGS: 1. Left ventricle was difficult to assess. The whole structure was difficult to assess because the patient was not compliant with the instructions and was demented; however. 2. The overall ejection fraction is hyperdynamic with an ejection fraction of 65% to 70%. ECHOCARDIOGRAM REPORT [id number] JEAN ANGELA 3. The left atrium is grossly normal. 4. Aortic valve has mild sclerosis. No evidence of aortic stenosis. 5. The mitral valve is normal. 6. The tricuspid valve is grossly normal. 7. The pericardium is normal. 8. The pulmonic valve is not well visualized, but by Doppler evaluation is normal. 9. The right ventricle is normal size and function. 10. The right atrium is normal size and normal function. CONCLUSIONS: This is grossly normal heart study with hyperdynamic left ventricle. TRANSINT:[id number] Voice Confirmation ID: [id number] DOCUMENT ID: [id number] 02/06/2017 Edited to correct date of service, dm. TERRIE MARCANO MD at 1247 CC: [id number] DICTATION DATE: 01/25/17 1647 DEVELOPMENT ARCHITECT: 01/25/17 2046 DIS IN 01/30/[address] [facility] [address] [place] [address]
== END 2017-01-30 17:09 | DRG 682 ==
LOC: D.ER 06:50 → D.M2 11:13
PROVIDERS: Emergency Medicine; Family Medicine; Internal Medicine Nephrology; ADMIT Family Medicine
PROC: 0T9B70Z Drainage of Bladder with Drainage Device, Via Natural or Artificial Opening (ICD-10-PCS; principal; 2017-01-23)
DX: N17.0 Acute kidney failure with tubular necrosis (principal); G93.41 Metabolic encephalopathy; G92 Toxic encephalopathy; J18.9 Pneumonia, unspecified organism; I13.0 Hypertensive heart and chronic kidney disease with heart failure and stage 1 through stage 4 chronic kidney disease, or unspecified chronic kidney disease; I48.92 Unspecified atrial flutter; F05 Delirium due to known physiological condition; E87.0 Hyperosmolality and hypernatremia; N39.0 Urinary tract infection, site not specified; J44.0 Chronic obstructive pulmonary disease with (acute) lower respiratory infection; E11.22 Type 2 diabetes mellitus with diabetic chronic kidney disease; N18.9 Chronic kidney disease, unspecified; I50.9 Heart failure, unspecified; E11.319 Type 2 diabetes mellitus with unspecified diabetic retinopathy without macular edema; E11.40 Type 2 diabetes mellitus with diabetic neuropathy, unspecified; I25.10 Atherosclerotic heart disease of native coronary artery without angina pectoris; E78.5 Hyperlipidemia, unspecified; I48.91 Unspecified atrial fibrillation; Z79.01 Long term (current) use of anticoagulants; K21.9 Gastro-esophageal reflux disease without esophagitis; E83.42 Hypomagnesemia; B19.20 Unspecified viral hepatitis C without hepatic coma; E87.5 Hyperkalemia; D63.8 Anemia in other chronic diseases classified elsewhere; E55.9 Vitamin D deficiency, unspecified; M54.5 Low back pain; G89.29 Other chronic pain; K59.00 Constipation, unspecified; Z72.0 Tobacco use; E11.21 Type 2 diabetes mellitus with diabetic nephropathy; B37.9 Candidiasis, unspecified; F03.90 Unspecified dementia, unspecified severity, without behavioral disturbance, psychotic disturbance, mood disturbance, and anxiety; Z86.73 Personal history of transient ischemic attack (TIA), and cerebral infarction without residual deficits; R79.89 Other specified abnormal findings of blood chemistry

== ENCOUNTER 2017-04-18 08:41 | Emergency (ER) | payer MEDICARE ==
[~2017-04-18 08:41] MED LIST changes: +ATIVAN2 MG/ML IV; +CEFTRIAXONE1 G/VIAL IM; +HUMALOG 30100 UNITS/ SC; +IPRAT-ALBUT 0.5-3 ML INH; +METOPROLOL TART50 MG PO; +NYSTATIN ORAL SU5 ML PO; +PROCRIT/EP10000 UNIT SC; +PROTONIX I40 MG/VIAL PD; +PROTONIX40 MG PO
== END 2017-04-18 12:05 | disposition home or self-care (01) ==
LOC: D.ER 08:41
DX: R60.0 Localized edema (principal); F17.200 Nicotine dependence, unspecified, uncomplicated